=== PATIENT | male | born 1950 | race Caucasian/White ===

== ENCOUNTER 2024-02-18 09:45 | Emergency (ER) | payer MEDICARE, BC ==
[2024-02-18] MEDS ORDERED: Ketorolac Tromethamine 30 MG (1 mL) VIAL ONE (10:20)
[2024-02-18 10:43] LABS: Bilirubin Neg (Negative); Blood, Urine Negative (Negative); Clarity Clear (Clear); Glucose, Urine (Dipstick) Normal (Negative); Ketone, Urine Negative (Negative); Leukocyte Negative (Negative); Nitrite Negative (Negative); Protein, Urine (Dipstick) Negative (Neg-Trace); Urobilinogen Normal mg/dL (Less than 2); pH, Urine 6.5 (5.0-9.0)
[2024-02-18 11:23] LABS: Bacteria/HPF None Seen HPF (None Seen); CAUTI Indications for Culture Pelvic or flank pain; RBC/HPF None Seen HPF (0-3); Squamous Epithelial 0-3 HPF (0-3); WBC/HPF None Seen HPF (0-3)
[2024-02-18 11:24] LABS: Urine Culture Reflex No No
== END 2024-02-18 11:15 | disposition home or self-care (01) ==
LOC: CSHERS 09:45
DX: M54.31 Sciatica, right side (principal); E03.9 Hypothyroidism, unspecified; Z79.899 Other long term (current) drug therapy
CPT/HCPCS: 81001; J1885; 96372; 99284

== ENCOUNTER 2024-02-24 14:55 | Outpatient (CLI) | payer MEDICARE, BC | END 2024-02-24 14:56 | disposition home or self-care (01) | LOC: CSHRAD 14:55 | PROVIDERS: ATTEND Nurse Practitioner | DX: M54.31 Sciatica, right side (principal); M16.11 Unilateral primary osteoarthritis, right hip ==

== ENCOUNTER 2024-06-03 10:59 | Outpatient (CLI) | payer MEDICARE, BC | END 2024-06-03 11:00 | disposition home or self-care (01) | LOC: CSHRAD 10:59 | PROVIDERS: ATTEND Internal Medicine | DX: M79.601 Pain in right arm (principal) ==

== ENCOUNTER 2024-08-24 15:05 | Outpatient (CLI) | payer MEDICARE, BC | END 2024-08-24 15:06 | disposition home or self-care (01) | LOC: CSHULT 15:05 | PROVIDERS: ATTEND Urology | DX: Z87.442 Personal history of urinary calculi (principal); Z98.890 Other specified postprocedural states | CPT/HCPCS: 76770 ==